=== PATIENT | male | born 1940 | race Caucasian/White ===

== ENCOUNTER 2017-06-06 06:16 | Day surgery (SDC) | payer MEDICARE, OTHER ==
[~2017-06-06] VITALS: Ht 165.1 cm; Wt 96.7 kg
[~2017-06-06 06:16] MED LIST: CALCIUM PO; CELE200C PO; CHOL400T10 PO; ENOX150S5 SQ; OMEP-110 PO; OXYB5TAB7 PO; PANT40TA5 PO; ROSU10TA PO; VERA180C8 PO; VITAMIN B12 PO; WARF7.5T6 PO
[2017-06-06] MEDS ORDERED: LACTATED RINGERS 1,000 ML IV SCH (06:33)
[2017-06-06] MEDS ORDERED: ENOX150S5 SQ (07:06)
[2017-06-06 07:07] VITALS: BP 137/78
[2017-06-06] MEDS ORDERED: PROPOFOL 10 MG/ML, 20ML ONE (07:28)
[2017-06-06] MEDS ORDERED: SUCCINYLCHOLINE 20 MG/ML, 10ML ONE (07:29)
[2017-06-06] MEDS ORDERED: MIDAZOLAM 1 MG/ML, 2ML ONE (07:31)
[2017-06-06] MEDS ORDERED: FENTANYL PF 100 MCG/2ML ONE (07:31)
[2017-06-06] MEDS ORDERED: ROCURONIUM 10 MG/ML,10ML ONE (07:56)
[2017-06-06] MEDS ORDERED: LABETALOL 5MG/ML, 20ML IV PRN (08:00)
[2017-06-06] MEDS ORDERED: EPHEDRINE 50 MG/ML, 1ML IVPush PRN (08:00)
[2017-06-06] MEDS ORDERED: FENTANYL PF 100 MCG/2ML IV PRN (08:00)
[2017-06-06] MEDS ORDERED: ACETAMINOPHEN 325 MG TABLET PO PRN (08:00)
[2017-06-06] MEDS ORDERED: OXYcodone 5 MG/5 ML ORAL.SOL UDC PO PRN (08:00)
[2017-06-06] MEDS ORDERED: METOPROLOL 1 MG/ML, 5ML IV PRN (08:00)
[2017-06-06] MEDS ORDERED: ALBUTEROL SULFATE 2.5 MG/3 ML NPPB PRN (08:00)
[2017-06-06] MEDS ORDERED: ONDANSETRON 2MG/ML, 2ML IVPush PRN (08:00)
[2017-06-06] MEDS ORDERED: METOCLOPRAMIDE 5 MG/ML, 2ML IV PRN (08:00)
[2017-06-06] MEDS ORDERED: HYDROcodone/APAP 7.5-325MG/15ML UDC PO PRN (08:00)
[2017-06-06] MEDS ORDERED: HYDROmorphone 1 MG/ML, 1ML IV PRN (08:00)
[2017-06-06] MEDS ORDERED: hydrALAzine 20 MG/ML, 1ML IV PRN (08:00)
[2017-06-06] MEDS ORDERED: DEXAMETHASONE 4 MG/ML, 1ML ONE (08:07)
[2017-06-06] MEDS ORDERED: ONDANSETRON 2MG/ML, 2ML ONE (08:09)
[2017-06-06] MEDS ORDERED: GLYCOPYRROLATE 0.4 MG/2 ML, 2ML ONE (08:33)
[2017-06-06] MEDS ORDERED: NEOSTIGMINE 1 MG/ML, 10ML ONE (08:34)
== END 2017-06-06 10:20 ==
LOC: OUT 06:16
PROVIDERS: ATTEND Internal Medicine
DX: K22.710 Barrett's esophagus with low grade dysplasia (principal); K21.0 Gastro-esophageal reflux disease with esophagitis; K31.89 Other diseases of stomach and duodenum; Z86.718 Personal history of other venous thrombosis and embolism; Z86.73 Personal history of transient ischemic attack (TIA), and cerebral infarction without residual deficits; I10 Essential (primary) hypertension
CPT/HCPCS: 36415; 43270; 85610; 85730; J0330; J1100; J2250; J2405; J2704; J2710; J3010; J7120

== ENCOUNTER 2017-07-18 05:47 | Day surgery (SDC) | payer MEDICARE, OTHER ==
[~2017-07-18] VITALS: Ht 165.1 cm; Wt 99.0 kg
[2017-07-18] MEDS ORDERED: LIDOCAINE 1%, 2ML ONE (06:06)
[2017-07-18 06:26] VITALS: BP 145/89
[2017-07-18] MEDS ORDERED: RIVA20TA PO (06:26)
[2017-07-18] MEDS ORDERED: OMEP-110 PO (06:26)
[2017-07-18] MEDS ORDERED: LACTATED RINGERS 1,000 ML IV SCH (06:34)
[2017-07-18] MEDS ORDERED: LIDOCAINE 1%, 2ML SQ PRN (07:00)
[2017-07-18] MEDS ORDERED: PROPOFOL 10 MG/ML, 20ML ONE (07:10)
[2017-07-18] MEDS ORDERED: LIDOCAINE-MPF 2% ,5ML ONE (07:10)
== END 2017-07-18 09:45 ==
LOC: OUT 05:47
PROVIDERS: ATTEND Internal Medicine Geriatric Medicine
DX: K22.710 Barrett's esophagus with low grade dysplasia (principal); K25.9 Gastric ulcer, unspecified as acute or chronic, without hemorrhage or perforation; K21.9 Gastro-esophageal reflux disease without esophagitis
CPT/HCPCS: 43270; J2704; J3490; J7120

== ENCOUNTER 2017-09-12 07:30 | Day surgery (SDC) | payer MEDICARE, OTHER ==
[~2017-09-12] VITALS: Ht 165.1 cm; Wt 98.6 kg
[~2017-09-12 07:30] MED LIST changes: +RIVA20TA PO
[2017-09-12 07:55] VITALS: BP 131/91
[2017-09-12] MEDS ORDERED: LACTATED RINGERS 1,000 ML IV SCH (07:59)
[2017-09-12] MEDS ORDERED: ROSU10TA PO (08:01)
[2017-09-12] MEDS ORDERED: PROPOFOL 10 MG/ML, 20ML ONE ×2 (10:13→10:18)
[2017-09-12] MEDS ORDERED: LIDOCAINE/MPF 2%-EPI 1:200K, 20 ML ONE (10:13)
[2017-09-12] MEDS ORDERED: LIDOCAINE-MPF 2% ,5ML ONE (10:18)
[2017-09-12] MEDS ORDERED: MIDAZOLAM 1 MG/ML, 2ML IV PRN (10:30)
[2017-09-12] MEDS ORDERED: morphine SULFATE 10 MG/ML, 1ML IV PRN (10:30)
[2017-09-12] MEDS ORDERED: FENTANYL PF 100 MCG/2ML IV PRN (10:30)
[2017-09-12] MEDS ORDERED: OXYcodone 5 MG/5 ML ORAL.SOL UDC PO PRN (10:30)
[2017-09-12] MEDS ORDERED: HYDROcodone/APAP 7.5-325MG/15ML UDC PO PRN (10:30)
== END 2017-09-12 12:05 ==
LOC: OUT 07:30
PROVIDERS: ATTEND Internal Medicine Geriatric Medicine
DX: K21.9 Gastro-esophageal reflux disease without esophagitis (principal); K22.719 Barrett's esophagus with dysplasia, unspecified; E66.9 Obesity, unspecified; Z68.36 Body mass index [BMI] 36.0-36.9, adult
CPT/HCPCS: 43270; 93005; J2704; J3490; J7120